=== PATIENT | male | born 1990 | race Caucasian/White ===

== ENCOUNTER 2017-12-16 22:57 | Emergency (ER) | payer SELFPAY ==
[~2017-12-16] VITALS: Ht 175.3 cm; Wt 72.6 kg
[2017-12-16] MEDS ORDERED: Tetracaine 0.5% Opth 4ml Soln ONE (23:03)
[2017-12-16 23:45] VITALS: BP 123/85
[2017-12-17] MEDS ORDERED: Haloperidol 5mg/ml Inj IM ONE
[2017-12-17 01:15] VITALS: BP 117/77
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
== END 2017-12-17 01:15 ==
LOC: EMR 23:09
DX: F10.929 Alcohol use, unspecified with intoxication, unspecified (principal); S00.81XA Abrasion of other part of head, initial encounter; Y04.0XXA Assault by unarmed brawl or fight, initial encounter; Y92.9 Unspecified place or not applicable
CPT/HCPCS: 96372; 99283; J1630